=== PATIENT | female | born 1960 | race Caucasian/White ===

== ENCOUNTER 2017-02-24 09:19 | Day surgery (SDC) | payer OTHER ==
[2017-02-14 17:50] VITALS: BMI 25.0
[~2017-02-24 09:19] MED LIST: FERRIC SUBSULFATE 500 ML BOTTLE TP ONE; IODINE/POTASSIUM IODIDE 5%/10% 14 ML BOTTLE NR ONE
--- NOTE | 2017-02-24 09:56 | HP ---
History & Physical Update - History History: No Change - Physical Physical: No Change - Assessment Assessment: No Change - Plan Plan: No Change (High Grade Cervical Dysplasia - for LEEP cone biopsy)
[2017-02-24] MEDS ORDERED: IBUPROFEN 800 MG/8 ML IJ IVPB PRN (11:13)
[2017-02-24] MEDS ORDERED: ACETAMINOPHEN 325 MG TABLET (FP) PO PRN (11:13)
[2017-02-24] MEDS ORDERED: LACTATED RINGERS SOLUTION 1,000 ML IV SCH ×2 (11:15→12:30)
[2017-02-24] MEDS ORDERED: MIDAZOLAM HCL 2 MG/2 ML SINGLE DOSE VIAL ONE (11:45)
[2017-02-24] MEDS ORDERED: PROPOFOL 20 ML ONE (11:45)
[2017-02-24] MEDS ORDERED: LIDOCAINE HCL/PF 2% SDV 5ML VIAL ONE (11:48)
[2017-02-24] MEDS ORDERED: KETOROLAC TROMETHAMINE 30 MG/1 ML VIAL ONE (11:55)
[2017-02-24] MEDS ORDERED: DEXAMETHASONE SOD PHOSPHATE 4 MG/1 ML VIAL ONE (11:55)
[2017-02-24] MEDS ORDERED: IODINE/POTASSIUM IODIDE 5%/10% 14 ML BOTTLE NR ONE (12:01)
[2017-02-24] MEDS ORDERED: FERRIC SUBSULFATE 500 ML BOTTLE TP ONE (12:04)
[2017-02-24] MEDS ORDERED: ONDANSETRON 4 MG/2 ML VIAL IVPUSH PRN (12:17)
[2017-02-24] MEDS ORDERED: PROMETHAZINE HCL 25 MG/1 ML VIAL IVPUSH PRN (12:17)
[2017-02-24 13:12] VITALS: TEMP 98.3
[2017-02-24 13:53] VITALS: BP 123/66; PULSE 60
--- NOTE | 2017-02-24 14:54 | OP ---
Operative Note - Note: Operative Date: 02/24/17 ([id number]) Pre-Operative Diagnosis: High Grade Cervical Dysplasia Operation: LEEP Cone Biopsy Post-Operative Diagnosis: Same as Pre-op Surgeon: Nette Kendrick Anesthesiologist/SAFETY AND HEALTH CONSULTANT: Valentin Emmanuel Anesthesia: MAC Specimens Removed: Cervical Biopsy Estimated Blood Loss (mls): 5 Operative Report Dictated: Yes
--- NOTE | 2017-02-25 11:39 | PATH ---
Surgical Pathology Report Patient Name: KIMMIE FERRER [facility]. Rec. #: [id number] /Age/Gender: 1960 (Age: 56) / F Account: [id number] Location: [facility] SURGICAL Taken: 02/24/2017 Received: 02/24/2017 Reported: 02/25/2017 Physicians: Nette Kendrick M.D. Specimen(s) Received CERVICAL LEEP CONE BX 12:OO O'CLOCK Clinical History HPV Final Diagnosis CERVIX, LEEP CONE EXCISION: HIGH GRADE SQUAMOUS INTRAEPITHELIAL LESION (HSIL), WITH ENDOCERVICAL GLANDULAR EXTENSION. HSIL IS SEEN EXTENDING TO THE APPARENT ENDOCERVICAL MARGIN IN THE 12:00 TO 3:00 AND THE 6:00 TO 9:00 QUADRANTS. THERMAL ARTIFACT WITH DENUDEMENT OF EPITHELIUM IS PRESENT. Electronically Signed Elio Williamson M.D. Gross Description Received in formalin labeled "LEEP cone biopsy," is a 1.2 cm in diameter annular portion of soft tissue, consistent with a cervical LEEP cone biopsy. There is a suture present marking the 12:00 aspect of the specimen, per the surgeon. The specimen is partially surfaced by a diaz pink, shiny and glistening mucosa. The specimen is inked blue, serially sectioned and entirely and sequentially submitted in 4 cassettes as follows: 1-12:00 to 3:00; 2-3:00 to 6:00; 3-6:00 to 9:00; 4-9:00 to 12:00. /02/24/2017 saudi/02/24/2017
--- NOTE | 2017-02-25 14:44 | OP ---
DATE OF OPERATION: 02/24/2017 PREOPERATIVE DIAGNOSIS: High-grade cervical dysplasia on colposcopy and high-grade Pap test. PROCEDURE: Loop electrosurgical excision procedure cone biopsy. ANESTHESIA: MAC anesthesia administered by Joes Emmanuel MD. SURGEON: Nette Kendrick DO SPECIMEN: Included cervical biopsy sent to Pathology for permanent evaluation. ESTIMATED BLOOD LOSS: 5 mL. COMPLICATIONS: None. COUNTS: Sponge, needle, and instrument counts were reported to be correct. BRIEF HISTORY AND PROCEDURE: Patient is a 56-year-old female who was seen in the office and had an abnormal Pap test. 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 At this point, the patient was counseled on her options and she signed consent for a LEEP cone biopsy procedure. The patient was admitted to [facility] on February 24, 2017. Consents were reconfirmed. The patient was taken back to the operating room, placed in the dorsal lithotomy position, and given MAC anesthesia. A hard timeout was performed. The speculum was placed inside the vagina and the cervix was easily visualized. Using a large LEEP loop, a cervical biopsy was taken in a single pass without difficulty and the 12 o'clock position was marked with a stitch and the specimen was sent to Pathology for evaluation. The surgical bed was cauterized with rollerball cautery. Hemostasis was achieved. Monsel solution was placed on the cervical site to further hemostasis. All instruments were removed from the surgical field and the vaginal area. All sponge, needle, and instrument counts were reported to be correct. The patient was awoken from anesthesia, recovered in stable condition in the PACU after the procedure. NETTE KENDRICK DO /[id number]
== END 2017-02-24 14:00 | disposition home or self-care (01) ==
LOC: JASU-SURG 09:19
PROVIDERS: ATTEND Obstetrics & Gynecology
PROC: 0UBC7ZX Excision of Cervix, Via Natural or Artificial Opening, Diagnostic (ICD-10-PCS; principal; 2017-02-24 11:00)
DX: N87.1 Moderate cervical dysplasia (principal)
CPT/HCPCS: 88307-TC; 94760

== ENCOUNTER 2021-12-07 04:32 | Day surgery (SDC) | payer OTHER ==
[2021-12-03 12:12] VITALS: BMI 23.4
[2021-12-07] MEDS ORDERED: PROPOFOL 20 ML ONE (10:22)
[2021-12-07] MEDS ORDERED: oxyCODONE HCL 5 MG TABLET PO PRN (11:33)
[2021-12-07] MEDS ORDERED: ACETAMINOPHEN 325 MG TABLET (FP) PO PRN (11:33)
[2021-12-07] MEDS ORDERED: ONDANSETRON 4 MG/2 ML VIAL IVPUSH PRN (11:33)
[2021-12-07 11:44] VITALS: BP 139/76; PULSE 68; TEMP 98.6
[2021-12-07] MEDS ORDERED: LACTATED RINGERS SOLUTION 1,000 ML IV SCH (11:45)
== END 2021-12-07 11:30 | disposition home or self-care (01) ==
LOC: JASU-SURG 04:32
PROVIDERS: ATTEND Urology
PROC: 0TF4XZZ Fragmentation in Left Kidney Pelvis, External Approach (ICD-10-PCS; principal; 2021-12-07 10:14)
DX: N20.0 Calculus of kidney (principal)
CPT/HCPCS: 82962

== ENCOUNTER 2025-01-14 05:34 | Day surgery (SDC) | payer OTHER ==
[2025-01-09 16:12] VITALS: BMI 22.8
[2025-01-14 14:12] VITALS: RESP 18
[2025-01-14] MEDS ORDERED: MIDAZOLAM HCL 2 MG/2 ML SINGLE DOSE VIAL ONE (16:22)
[2025-01-14 17:42] VITALS: BP 151/61; PULSE 70; TEMP 97.3
== END 2025-01-14 17:40 | disposition home or self-care (01) ==
LOC: JASU-SURG 05:34
PROVIDERS: ATTEND Urology
PROC: 0TF4XZZ Fragmentation in Left Kidney Pelvis, External Approach (ICD-10-PCS; principal; 2025-01-14 16:30)
DX: N20.0 Calculus of kidney (principal)
CPT/HCPCS: 82962